=== PATIENT | male | born 1960 | race African-American/Black ===

== ENCOUNTER 2020-06-13 09:55 | Outpatient (CLI) | payer MEDICARE ==
--- NOTE | 2020-06-13 11:41 | ULT ---
US Hepatic Doppler History: Abnormal liver function tests Comparison: None. Findings: Real-time grayscale, color and spectral analysis of the liver was performed. Diffuse increased hepatic echotexture. No abnormal mass. Visualized portion aorta IVC and pancreas unremarkable. Normal directional flow of the portal vein and hepatic veins. Liver is enlarged measuring 20 cm in length. Gallbladder wall thickness is normal. Common bile duct is normal. No pericholecystic fluid. Spleen is enlarged measuring 13.4 cm in length. Impression: 1. Hepatosplenomegaly and diffuse hepatic steatosis. 2. Normal directional flow of the hepatic and portal veins.
== END 2020-06-13 09:56 | disposition home or self-care (01) ==
LOC: BICULT 09:55
PROVIDERS: ATTEND Internal Medicine Gastroenterology
DX: R94.5 Abnormal results of liver function studies (principal); D64.9 Anemia, unspecified; R16.2 Hepatomegaly with splenomegaly, not elsewhere classified; K76.0 Fatty (change of) liver, not elsewhere classified
CPT/HCPCS: 76705

== ENCOUNTER 2021-01-02 10:26 | Inpatient (IN) | payer MEDICARE ==
[2021-01-02 11:08] LABS: Hemoglobin 5.5 g/dL (14.0-18.0); Mean Corpuscular HGB CONC 28.3 g/dL (32.0-36.0); Mean Corpuscular Volume 63.5 fL (78.0-98.0); RBC Distribution Width 20.4 % (11.5-14.5); Red Blood Cell (RBC) Count 3.05 mill/uL (4.70-6.10)
[2021-01-02 11:36] LABS: #Eosinphils 0.2 thou/uL (0.0-0.7); #Lymphocytes 2.1 thou/uL (1.20-3.40); #Monocytes 0.8 thou/uL (0.11-0.59); #Neutrophils 3.8 thou/uL (1.40-6.50); %Basophils 0.7 % (0.0-1.0); %Eosinophils 3.3 % (0.0-10.0); %Lymphocytes 30.5 % (21.0-51.0); %Neutrophils 54.5 % (42.0-75.0); Anisocytosis MODERATE=16-30 cells (100X) (0-5/hpf); Band 1 % (5-11); Eosinophils 2 % (0-10); Hypochromia MODERATE=16-30 cells (100X) (0-5/hpf); Lymphocytes 26 % (21-51); MDiff Complete? YES; Mean Platelet Volume 6.9 fL (7.4-10.4); Monocytes 12 % (0-10); Neutrophil 59 % (42-75); Nucleated RBC 1 % (0); Platelet Count 261 thou/uL (130-400); Platelet Morphology Comment Appears Adequate; Polychromasia SLIGHT = 2-3 cells (100X) (0-2/hpf); Reflex for Review?? YES; Tear Drops SLIGHT = 2-5 cells (100X) (0-1/hpf)
[2021-01-02 11:43] LABS: INR-International Normal Ratio 1.1; PTT 35.7 sec (22.9-36.1); Prothrombin Time 14.5 sec (12.0-14.7)
[2021-01-02 12:09] LABS: ALT (SGPT) 31 U/L (8-55); AST (SGOT) 36 U/L (5-34); Albumin 3.8 g/dL (3.5-5.0); Alkaline Phosphatase 135 U/L (40-110); Anion Gap 14 mmol/L (10-20); BUN (Urea Nitrogen) 25 mg/dL (8.4-25.7); Bilirubin, Total 0.3 mg/dL (0.2-1.2); Calc. Creatinine Clearance 0 mL/min (70-130); Calcium 9.5 mg/dL (7.8-10.44); Carbon Dioxide 22 mmol/L (22-29); Chloride 106 mmol/L (98-107); Globulin 4.5 g/dL (2.4-3.5); Glucose 126 mg/dL (70-105); Potassium 4.9 mmol/L (3.5-5.1); Protein, Total 8.3 g/dL (6.0-8.3); Sodium 137 mmol/L (136-145)
[2021-01-02 13:54] LABS: Iron 14 ug/dL (65-175); Iron Binding Capacity, Total 498 mcg/dL (261-462)
[2021-01-02] MEDS ORDERED: Ondansetron ODT 4 MG TAB PO PRN (14:27)
[2021-01-02] MEDS ORDERED: Ondansetron PF 4 MG/2 ML Vial IVP PRN (14:27)
[2021-01-02] MEDS ORDERED: Dextrose 5% in Water 1,000 ML IV PRN (14:27)
[2021-01-02] MEDS ORDERED: HumaLOG 300 UNITS/3 ML VIAL SC PRN (14:27)
[2021-01-02] MEDS ORDERED: Acetaminophen 325 MG TAB PO PRN (14:27)
[2021-01-02] MEDS ORDERED: Dextrose 50% Abboject 50 ML SYRINGE SLOW IVP PRN (14:27)
[2021-01-02 14:58] LABS: Reticulocyte Count 2.8 % (0.5-1.5)
[2021-01-02 15:47] VITALS: BMI 38.3
[2021-01-02] MEDS: Lactated Ringer's 1,000 ML IV SCH (17:24)
[2021-01-02] MEDS ORDERED: GoLYTELY 4,000 ml Bottle PO SCH (20:00)
[2021-01-02] MEDS: Pantoprazole 40 MG VIAL IVP SCH (20:08)
[2021-01-02 20:45] LABS: SARS-CoV-2 PCR NAA for Saliva Not Detected (NotDetected)
[2021-01-03] MEDS: Lactated Ringer's 1,000 ML IV SCH ×3 (00:28→13:30)
[2021-01-03 05:08] LABS: Hemoglobin 6.6 g/dL (14.0-18.0)
[2021-01-03 05:27] LABS: Anion Gap 12 mmol/L (10-20); BUN (Urea Nitrogen) 22 mg/dL (8.4-25.7); Calc. Creatinine Clearance 59 mL/min (70-130); Calcium 9.3 mg/dL (7.8-10.44); Carbon Dioxide 23 mmol/L (22-29); Chloride 107 mmol/L (98-107); Glucose 124 mg/dL (70-105); Potassium 4.1 mmol/L (3.5-5.1); Sodium 138 mmol/L (136-145)
[2021-01-03] MEDS ORDERED: GoLYTELY 4,000 ml Bottle PO SCH (06:00)
[2021-01-03] MEDS: Pantoprazole 40 MG VIAL IVP SCH (08:31)
[2021-01-03 10:12] LABS: Hemoglobin 8.6 g/dL (14.0-18.0)
[2021-01-03 16:43] VITALS: BP 172/94; TEMP 98
[2021-01-06 15:22] LABS: Hematocrit 21.1 % (37.5-51.0); RBC Folate Test Component 1929 ng/mL (>498)
== END 2021-01-03 19:08 | disposition home or self-care (01) | DRG 812 ==
LOC: ERS 10:26 → T4-B 14:05
PROVIDERS: ADMIT Student in an Organized Health Care Education/Training Program; ATTEND Student in an Organized Health Care Education/Training Program
PROC: 30233N1 Transfusion of Nonautologous Red Blood Cells into Peripheral Vein, Percutaneous Approach (ICD-10-PCS; principal; 2021-01-02)
DX: D50.9 Iron deficiency anemia, unspecified (principal); Z20.822 Contact with and (suspected) exposure to COVID-19; M10.9 Gout, unspecified; F17.220 Nicotine dependence, chewing tobacco, uncomplicated; I12.9 Hypertensive chronic kidney disease with stage 1 through stage 4 chronic kidney disease, or unspecified chronic kidney disease; E11.22 Type 2 diabetes mellitus with diabetic chronic kidney disease; K76.0 Fatty (change of) liver, not elsewhere classified; E78.5 Hyperlipidemia, unspecified; D63.1 Anemia in chronic kidney disease; N18.32 Chronic kidney disease, stage 3b; Z83.2 Family history of diseases of the blood and blood-forming organs and certain disorders involving the immune mechanism
CPT/HCPCS: 36415; 36416; 36430; 80048; 80053; 82607; 82728; 82747; 83540; 83550; 85014; 85018; 85025; 85046; 85060; 85610; 85660; 85730; 86850; 86900; 86901; 87635; 99284; C9113; P9016; U0003; U0005

== ENCOUNTER 2021-02-03 10:14 | Emergency (ER) | payer MEDICARE ==
[2021-02-03 10:54] LABS: Hemoglobin 6.3 g/dL (14.0-18.0); Mean Corpuscular HGB CONC 32.3 g/dL (32.0-36.0); Mean Corpuscular Hemoglobin 22.5 pg (27.0-31.0); Mean Corpuscular Volume 69.6 fL (78.0-98.0); Mean Platelet Volume 5.4 fL (7.4-10.4); Platelet Count 238 thou/uL (130-400); RBC Distribution Width 20.9 % (11.5-14.5); Red Blood Cell (RBC) Count 2.78 mill/uL (4.70-6.10)
[2021-02-03 11:12] LABS: ALT (SGPT) 41 U/L (8-55); AST (SGOT) 43 U/L (5-34); Alkaline Phosphatase 142 U/L (40-110); Anion Gap 14 mmol/L (10-20); BUN (Urea Nitrogen) 28 mg/dL (8.4-25.7); Bilirubin, Total 0.3 mg/dL (0.2-1.2); Calc. Creatinine Clearance 0 mL/min (70-130); Calcium 9.1 mg/dL (7.8-10.44); Carbon Dioxide 22 mmol/L (22-29); Chloride 107 mmol/L (98-107); Globulin 4.3 g/dL (2.4-3.5); Glucose 163 mg/dL (70-105); Potassium 4.6 mmol/L (3.5-5.1); Protein, Total 8.3 g/dL (6.0-8.3); Sodium 138 mmol/L (136-145)
[2021-02-03 11:20] LABS: #Basophils 0.1 thou/uL (0.0-0.2); #Eosinphils 0.2 thou/uL (0.0-0.7); #Lymphocytes 1.7 thou/uL (1.20-3.40); #Monocytes 0.6 thou/uL (0.11-0.59); #Neutrophils 4.3 thou/uL (1.40-6.50); %Eosinophils 3.4 % (0.0-10.0); %Monocytes 8.9 % (0.0-10.0); %Neutrophils 61.6 % (42.0-75.0); Anisocytosis MODERATE=16-30 cells (100X) (0-5/hpf); Hypochromia MODERATE=16-30 cells (100X) (0-5/hpf); MDiff Complete? YES; Microcytosis MODERATE=15-30 cells (100X) (0-5/hpf); Platelet Morphology Comment Appears Adequate; Poikilocytosis SLIGHT = 6-15 cells (100X) (0-5/hpf); Polychromasia SLIGHT = 2-3 cells (100X) (0-2/hpf); Tear Drops SLIGHT = 2-5 cells (100X) (0-1/hpf)
== END 2021-02-03 14:23 | disposition home or self-care (01) ==
LOC: ERS 10:14
DX: K92.2 Gastrointestinal hemorrhage, unspecified (principal); I12.9 Hypertensive chronic kidney disease with stage 1 through stage 4 chronic kidney disease, or unspecified chronic kidney disease; E11.22 Type 2 diabetes mellitus with diabetic chronic kidney disease; N18.9 Chronic kidney disease, unspecified; D63.1 Anemia in chronic kidney disease; M10.9 Gout, unspecified; F17.220 Nicotine dependence, chewing tobacco, uncomplicated; E78.5 Hyperlipidemia, unspecified
CPT/HCPCS: 36430; 80053; 85025; 86850; 86900; 86901; 86920; 99284; P9016; 36415

== ENCOUNTER 2021-10-19 13:55 | Outpatient (CLI) | payer MEDICARE | END 2021-10-19 13:56 | disposition home or self-care (01) | LOC: BICULT 13:55 | PROVIDERS: ATTEND Internal Medicine Nephrology | DX: I12.9 Hypertensive chronic kidney disease with stage 1 through stage 4 chronic kidney disease, or unspecified chronic kidney disease (principal); N18.4 Chronic kidney disease, stage 4 (severe) | CPT/HCPCS: 36415; 76770; 80048; 81003; 82040; 82570; 83735; 83970; 84100; 84156; 86038; 86225; 86235; 93975 ==

== ENCOUNTER 2022-02-15 11:05 | Outpatient (CLI) | payer MEDICARE | END 2022-02-15 11:06 | disposition home or self-care (01) | LOC: LABBT 11:05 | PROVIDERS: ATTEND Internal Medicine Nephrology | DX: Z20.822 Contact with and (suspected) exposure to COVID-19 (principal) | CPT/HCPCS: U0003; U0005 ==

== ENCOUNTER → 2022-02-19 | Day surgery (SDC) | payer MEDICARE ==
[2022-02-18 10:10] VITALS: BMI 36.8
[2022-02-19 08:57] LABS: INR-International Normal Ratio 1.1; Prothrombin Time 13.8 sec (12.0-14.7)
[2022-02-19 08:58] LABS: PTT 34.8 sec (22.9-36.1)
[2022-02-19 09:12] VITALS: BP 131/75; TEMP 98
== END | disposition home or self-care (01) ==
LOC: CT 08:29
PROVIDERS: ATTEND Internal Medicine Nephrology
PROC: 0TB03ZX Excision of Right Kidney, Percutaneous Approach, Diagnostic (ICD-10-PCS; principal; 2022-02-19)
DX: I12.9 Hypertensive chronic kidney disease with stage 1 through stage 4 chronic kidney disease, or unspecified chronic kidney disease (principal); E11.22 Type 2 diabetes mellitus with diabetic chronic kidney disease; N18.4 Chronic kidney disease, stage 4 (severe); D63.1 Anemia in chronic kidney disease; E11.21 Type 2 diabetes mellitus with diabetic nephropathy; N25.81 Secondary hyperparathyroidism of renal origin; R16.2 Hepatomegaly with splenomegaly, not elsewhere classified; E87.5 Hyperkalemia; M10.9 Gout, unspecified; F17.290 Nicotine dependence, other tobacco product, uncomplicated; Z79.890 Hormone replacement therapy; Z79.899 Other long term (current) drug therapy
CPT/HCPCS: 36415; 50200; 77012; 85610; 85730; 88329

== ENCOUNTER 2022-07-21 08:43 | Day surgery (SDC) | payer MEDICARE ==
[2022-07-21] MEDS ORDERED: Acetaminophen 500 MG TAB ONE (10:31)
[2022-07-21] MEDS ORDERED: diphenhydrAMINE 25 MG CAP ONE (10:31)
[2022-07-21 16:02] VITALS: BP 152/83; TEMP 97.7
== END 2022-07-21 16:02 | disposition home or self-care (01) ==
LOC: ONC/OP 08:43
PROVIDERS: ATTEND Internal Medicine Hematology & Oncology
PROC: 30233N1 Transfusion of Nonautologous Red Blood Cells into Peripheral Vein, Percutaneous Approach (ICD-10-PCS; principal; 2022-07-21)
DX: D64.9 Anemia, unspecified (principal); D69.6 Thrombocytopenia, unspecified
CPT/HCPCS: 36430; 86850; 86900; 86901; P9016

== ENCOUNTER 2022-09-24 12:45 | Inpatient (IN) | payer MEDICARE ==
[2022-09-24 13:18] LABS: #Basophils 0.1 thou/uL (0.0-0.2); #Eosinphils 0.4 thou/uL (0.0-0.7); #Lymphocytes 1.1 thou/uL (1.20-3.40); #Monocytes 0.5 thou/uL (0.11-0.59); #Neutrophils 4.7 thou/uL (1.40-6.50); %Basophils 0.8 % (0.0-1.0); %Eosinophils 6.1 % (0.0-10.0); %Lymphocytes 16.5 % (21.0-51.0); %Monocytes 7.3 % (0.0-10.0); %Neutrophils 69.3 % (42.0-75.0); Mean Corpuscular HGB CONC 32.6 g/dL (32.0-36.0); Mean Corpuscular Hemoglobin 29.1 pg (27.0-31.0); Mean Corpuscular Volume 89.3 fl (78.0-98.0); Mean Platelet Volume 8.1 fL (7.4-10.4); Platelet Count 218 10x3/uL (130-400); RBC Distribution Width 14.1 % (11.5-14.5); Red Blood Cell (RBC) Count 3.07 mill/uL (4.70-6.10); White Blood Cell (WBC) Count 6.8 10x3/uL (4.8-10.8)
[2022-09-24 13:37] LABS: ALT (SGPT) 16 U/L (8-55); AST (SGOT) 18 U/L (5-34); Alkaline Phosphatase 132 U/L (40-110); Anion Gap 18 mmol/L (10-20); BUN (Urea Nitrogen) 60 mg/dL (8.4-25.7); Bilirubin, Total 0.4 mg/dL (0.2-1.2); Calc. Creatinine Clearance 0 mL/min (70-130); Calcium 8.8 mg/dL (7.8-10.44); Carbon Dioxide 19 mmol/L (22-29); Chloride 103 mmol/L (98-107); Estimated GFR 7; Globulin 4.6 g/dL (2.4-3.5); Glucose 156 mg/dL (70-105); Potassium 5.5 mmol/L (3.5-5.1); Protein, Total 8.6 g/dL (6.0-8.3); Sodium 134 mmol/L (136-145)
[2022-09-24] MEDS ORDERED: Calcium Gluc 4.6 MEQ/10 ML (100 MG/ML) ONE (14:38)
[2022-09-24 14:58] LABS: Bacteria/HPF 2+ HPF (None Seen); Bilirubin Negative (Negative); Blood, Urine 1+ (Negative); Clarity Clear (Clear); Glucose, Urine (Dipstick) 70 mg/dL (Negative); Ketone, Urine Negative (Negative); Leukocyte Negative Leu/uL (Negative); Nitrite Negative (Negative); Protein, Urine (Dipstick) 300 mg/dL (Neg-Trace); RBC/HPF 0-3 HPF (0-3); Specific Gravity, Urine 1.015 (1.002-1.036); Squamous Epithelial 0-3 HPF (0-3); Urobilinogen Normal mg/dL (Less than 2); pH, Urine 6.5 (5.0-9.0)
[2022-09-24] MEDS ORDERED: HumaLOG 300 UNITS/3 ML VIAL SC PRN (15:56)
[2022-09-24] MEDS ORDERED: Dextrose 50% Abboject 50 ML SYRINGE SLOW IVP PRN (15:56)
[2022-09-24] MEDS ORDERED: Acetaminophen 325 MG TAB PO PRN ×2 (15:56→16:46)
[2022-09-24] MEDS ORDERED: Dextrose 5% in Water 1,000 ML IV PRN (15:56)
[2022-09-24] MEDS ORDERED: LOKELMA 5 GM PACKET PO SCH (16:00)
[2022-09-24] MEDS ORDERED: HYDROcodone/Acetaminophen 10/325 mg Tablet PO PRN (16:03)
[2022-09-24] MEDS ORDERED: Sodium Bicarbonate Tab 325 MG TAB PO SCH (16:15)
[2022-09-24 16:47] VITALS: BMI 38.7
[2022-09-24] MEDS: Carvedilol 6.25 MG TAB PO SCH (20:29)
[2022-09-24] MEDS ORDERED: Sodium Bicarbonate 150 MEQ in Dextrose 5% in Water 1,000 ML IV SCH (20:30)
[2022-09-24] MEDS: Heparin 5,000 UNITS/ML VIAL SC SCH (20:31)
[2022-09-24 22:34] LABS: Anion Gap 16 mmol/L (10-20); BUN (Urea Nitrogen) 65 mg/dL (8.4-25.7); Calc. Creatinine Clearance 16 mL/min (70-130); Calcium 8.8 mg/dL (7.8-10.44); Carbon Dioxide 19 mmol/L (22-29); Chloride 106 mmol/L (98-107); Estimated GFR 8; Glucose 104 mg/dL (70-105); Potassium 5.1 mmol/L (3.5-5.1); Sodium 136 mmol/L (136-145)
[2022-09-25 04:35] LABS: #Eosinphils 0.4 thou/uL (0.0-0.7); #Lymphocytes 1.6 thou/uL (1.20-3.40); #Monocytes 0.5 thou/uL (0.11-0.59); #Neutrophils 4.4 thou/uL (1.40-6.50); %Basophils 0.5 % (0.0-1.0); %Eosinophils 6.2 % (0.0-10.0); %Lymphocytes 22.5 % (21.0-51.0); %Monocytes 7.5 % (0.0-10.0); %Neutrophils 63.3 % (42.0-75.0); Hemoglobin 7.9 g/dL (14.0-18.0); Mean Corpuscular HGB CONC 32.7 g/dL (32.0-36.0); Mean Corpuscular Hemoglobin 28.9 pg (27.0-31.0); Mean Corpuscular Volume 88.5 fl (78.0-98.0); Mean Platelet Volume 8.3 fL (7.4-10.4); Platelet Count 219 10x3/uL (130-400); RBC Distribution Width 14.2 % (11.5-14.5); Red Blood Cell (RBC) Count 2.71 mill/uL (4.70-6.10)
[2022-09-25 04:54] LABS: Albumin 3.7 g/dL (3.5-5.0); Anion Gap 17 mmol/L (10-20); BUN (Urea Nitrogen) 62 mg/dL (8.4-25.7); BUN/Creatinine Ratio 7.78; Calc. Creatinine Clearance 15 mL/min (70-130); Calcium 8.7 mg/dL (7.8-10.44); Carbon Dioxide 20 mmol/L (22-29); Chloride 104 mmol/L (98-107); Estimated GFR 7; Glucose 113 mg/dL (70-105); Phosphorus 5.9 mg/dL (2.3-4.7); Sodium 136 mmol/L (136-145)
[2022-09-25] MEDS: Febuxostat 40 MG TAB PO SCH (05:26)
[2022-09-25] MEDS: Folic Acid 1 MG TAB PO SCH (05:26)
[2022-09-25] MEDS: Levothyroxine 150 MCG TAB PO SCH (05:26)
[2022-09-25] MEDS: Carvedilol 6.25 MG TAB PO SCH ×2 (05:26→20:01)
[2022-09-25] MEDS: Doxazosin Mesylate 4 MG TAB PO SCH (05:26)
[2022-09-25] MEDS: Amlodipine 10 MG TAB PO SCH (05:26)
[2022-09-25] MEDS: Heparin 5,000 UNITS/ML VIAL SC SCH ×3 (08:10→20:04)
[2022-09-25] MEDS: Ferrous Sulfate 325 MG TAB PO SCH (08:10)
[2022-09-25] MEDS: Sodium Bicarbonate Tab 325 MG TAB PO SCH (08:11)
[2022-09-25] MEDS ORDERED: CEFAZOLIN 2 GM VIAL ONE (11:40)
[2022-09-25] MEDS ORDERED: Sodium Chloride 0.9% 100 ML ONE (11:40)
[2022-09-25] MEDS ORDERED: Lidocaine 1% PF 5 ML VIAL ONE (11:56)
[2022-09-25] MEDS ORDERED: Bupivacaine HCl 0.5%/Epinephrine 1:200,000/PF 30 ml Vial ONE (11:56)
[2022-09-25] MEDS ORDERED: Heparin 10,000 UNITS/ 10 ML VIAL ONE ×2 (11:56→12:36)
[2022-09-25] MEDS ORDERED: fentaNYL PF 100 MCG/2 ML SYRINGE ONE (12:08)
[2022-09-25] MEDS ORDERED: ePHEDrine 50 MG/ML VIAL ONE (12:38)
[2022-09-25] MEDS ORDERED: PROPOFOL 200 MG/20 ML VIAL ONE (12:38)
[2022-09-25] MEDS ORDERED: Ondansetron PF 4 MG/2 ML Vial ONE (12:38)
[2022-09-25] MEDS ORDERED: Glycopyrrolate 0.2 MG/ML 5 ML SYRINGE ONE (12:38)
[2022-09-25] MEDS ORDERED: traMADol HCl 50 MG TAB PO PRN (13:35)
[2022-09-25 15:33] LABS: HBSAB Concentration Less than 8.00 mIU/mL; HBSAg Index 0.21 S/CO (0-0.99); Hep B Core Total Ab Non-Reactive (NonReactive); Hep B Core Total Index 0.13 S/CO (0-0.79); Hep B Surf AB Non-Reactive (NonReactive); Hep B Surf Ag Non-Reactive S/CO (NonReactive)
[2022-09-25 15:38] LABS: Hep C IgG Ab Reflex HepC Qnt (NonReactive); Hep C Index 10.99 S/CO (0-0.79)
[2022-09-25] MEDS ORDERED: CEFAZOLIN 2 GM in Sodium Chloride 0.9% 100 ML IVPB SCH (16:30)
[2022-09-26] MEDS: HYDROcodone/Acetaminophen 10/325 mg Tablet PO PRN ×2 (00:36→12:59)
[2022-09-26 05:00] LABS: #Basophils 0.1 thou/uL (0.0-0.2); #Eosinphils 0.4 thou/uL (0.0-0.7); #Lymphocytes 1.3 thou/uL (1.20-3.40); #Monocytes 0.6 thou/uL (0.11-0.59); #Neutrophils 6.3 thou/uL (1.40-6.50); %Basophils 0.6 % (0.0-1.0); %Eosinophils 4.2 % (0.0-10.0); %Lymphocytes 14.7 % (21.0-51.0); %Neutrophils 73.4 % (42.0-75.0); Hemoglobin 8.7 g/dL (14.0-18.0); Mean Corpuscular HGB CONC 32.5 g/dL (32.0-36.0); Mean Corpuscular Hemoglobin 28.8 pg (27.0-31.0); Mean Corpuscular Volume 88.6 fl (78.0-98.0); Mean Platelet Volume 7.8 fL (7.4-10.4); Platelet Count 213 10x3/uL (130-400); RBC Distribution Width 13.8 % (11.5-14.5); Red Blood Cell (RBC) Count 3.02 mill/uL (4.70-6.10); White Blood Cell (WBC) Count 8.6 10x3/uL (4.8-10.8)
[2022-09-26] MEDS: Levothyroxine 150 MCG TAB PO SCH (05:14)
[2022-09-26 05:32] LABS: Anion Gap 16 mmol/L (10-20); BUN (Urea Nitrogen) 47 mg/dL (8.4-25.7); Calc. Creatinine Clearance 19 mL/min (70-130); Calcium 8.2 mg/dL (7.8-10.44); Carbon Dioxide 24 mmol/L (22-29); Chloride 99 mmol/L (98-107); Estimated GFR 9; Glucose 126 mg/dL (70-105); Potassium 4.5 mmol/L (3.5-5.1); Sodium 134 mmol/L (136-145)
[2022-09-26 07:44] LABS: Phosphorus 1.6 mg/dL (2.3-4.7)
[2022-09-26 07:56] LABS: Magnesium 1.8 mg/dL (1.6-2.6)
[2022-09-26] MEDS: Heparin 5,000 UNITS/ML VIAL SC SCH ×3 (09:24→22:13)
[2022-09-26] MEDS ORDERED: Heparin 10,000 UNITS/ 10 ML VIAL ONE (12:37)
[2022-09-26] MEDS: Ferrous Sulfate 325 MG TAB PO SCH (12:42)
[2022-09-26] MEDS: Amlodipine 10 MG TAB PO SCH (12:43)
[2022-09-26] MEDS: Doxazosin Mesylate 4 MG TAB PO SCH (12:47)
[2022-09-26] MEDS: Carvedilol 6.25 MG TAB PO SCH ×2 (12:47→22:21)
[2022-09-26] MEDS: Febuxostat 40 MG TAB PO SCH (12:48)
[2022-09-26] MEDS: Fish Oil 1,000 MG CAP PO SCH (12:48)
[2022-09-26] MEDS: Sodium Bicarbonate Tab 325 MG TAB PO SCH (12:49)
[2022-09-26] MEDS: Folic Acid 1 MG TAB PO SCH (12:49)
[2022-09-27 05:12] LABS: #Eosinphils 0.4 thou/uL (0.0-0.7); #Lymphocytes 1.6 thou/uL (1.20-3.40); #Monocytes 0.6 thou/uL (0.11-0.59); #Neutrophils 3.6 thou/uL (1.40-6.50); %Basophils 0.6 % (0.0-1.0); %Eosinophils 6.6 % (0.0-10.0); %Lymphocytes 25.7 % (21.0-51.0); %Monocytes 9.5 % (0.0-10.0); %Neutrophils 57.6 % (42.0-75.0); Hemoglobin 8.8 g/dL (14.0-18.0); Mean Corpuscular HGB CONC 32.5 g/dL (32.0-36.0); Mean Corpuscular Hemoglobin 28.8 pg (27.0-31.0); Mean Corpuscular Volume 88.6 fl (78.0-98.0); Platelet Count 194 10x3/uL (130-400); RBC Distribution Width 13.6 % (11.5-14.5); Red Blood Cell (RBC) Count 3.04 mill/uL (4.70-6.10); White Blood Cell (WBC) Count 6.3 10x3/uL (4.8-10.8)
[2022-09-27] MEDS: Carvedilol 6.25 MG TAB PO SCH ×2 (05:42→21:05)
[2022-09-27] MEDS: Levothyroxine 150 MCG TAB PO SCH (05:42)
[2022-09-27] MEDS: HYDROcodone/Acetaminophen 10/325 mg Tablet PO PRN ×2 (05:43→21:05)
[2022-09-27] MEDS ORDERED: CEFAZOLIN 2 GM in Sodium Chloride 0.9% 100 ML IVPB SCH (06:00)
[2022-09-27 06:04] LABS: Anion Gap 16 mmol/L (10-20); BUN (Urea Nitrogen) 40 mg/dL (8.4-25.7); Calc. Creatinine Clearance 20 mL/min (70-130); Calcium 8.3 mg/dL (7.8-10.44); Carbon Dioxide 24 mmol/L (22-29); Chloride 101 mmol/L (98-107); Estimated GFR 10; Glucose 105 mg/dL (70-105); Magnesium 2.2 mg/dL (1.6-2.6); Potassium 4.2 mmol/L (3.5-5.1); Sodium 137 mmol/L (136-145)
[2022-09-27] MEDS: Febuxostat 40 MG TAB PO SCH (08:16)
[2022-09-27] MEDS: Sodium Bicarbonate Tab 325 MG TAB PO SCH (08:16)
[2022-09-27] MEDS: Folic Acid 1 MG TAB PO SCH (08:16)
[2022-09-27] MEDS: Ferrous Sulfate 325 MG TAB PO SCH (08:16)
[2022-09-27] MEDS: Amlodipine 10 MG TAB PO SCH (08:16)
[2022-09-27] MEDS: Doxazosin Mesylate 4 MG TAB PO SCH (08:16)
[2022-09-27] MEDS: Fish Oil 1,000 MG CAP PO SCH (08:16)
[2022-09-27] MEDS: Heparin 5,000 UNITS/ML VIAL SC SCH ×3 (08:17→21:05)
[2022-09-27] MEDS ORDERED: Tuberculin PPD 0.1 ML VIAL I-DERMAL SCH (11:00)
[2022-09-27] MEDS ORDERED: Midazolam HCl 2 mg/2 ml Vial ONE (11:17)
[2022-09-27] MEDS ORDERED: Heparin 5,000 UNITS/ML VIAL ONE (11:49)
[2022-09-27] MEDS ORDERED: Protamine Sulfate 50 MG/5 ML VIAL ONE (11:49)
[2022-09-27] MEDS ORDERED: Bupivacaine PF 0.5% 30 ML VIAL ONE (11:49)
[2022-09-27] MEDS ORDERED: fentaNYL PF 100 MCG/2 ML SYRINGE ONE (11:59)
[2022-09-27] MEDS ORDERED: Epoetin (ESRD) 10,000 UNITS/ML VIAL IVP SCH (12:00)
[2022-09-27] MEDS ORDERED: Sodium Chloride 0.9% 100 ML ONE (12:02)
[2022-09-27] MEDS ORDERED: CEFAZOLIN 2 GM VIAL ONE (12:02)
[2022-09-27] MEDS ORDERED: Ondansetron PF 4 MG/2 ML Vial ONE (12:18)
[2022-09-27] MEDS ORDERED: Ropivacaine 0.5% HCl/PF (150 MG/30 ML VIAL) ONE (12:18)
[2022-09-27] MEDS: EPOETIN ALFA-EPBX (ESRD) 10,000 UNIT/ML VIAL IVP SCH (16:15)
[2022-09-27] MEDS: Sevelamer Carbonate 800 MG TAB PO SCH (16:53)
[2022-09-28 04:34] LABS: #Eosinphils 0.3 thou/uL (0.0-0.7); #Lymphocytes 1.4 thou/uL (1.20-3.40); #Monocytes 0.7 thou/uL (0.11-0.59); #Neutrophils 4.3 thou/uL (1.40-6.50); %Basophils 0.3 % (0.0-1.0); %Eosinophils 4.3 % (0.0-10.0); %Lymphocytes 21.4 % (21.0-51.0); %Monocytes 10.2 % (0.0-10.0); %Neutrophils 63.8 % (42.0-75.0); Hemoglobin 8.9 g/dL (14.0-18.0); Mean Corpuscular HGB CONC 32.7 g/dL (32.0-36.0); Mean Corpuscular Hemoglobin 28.9 pg (27.0-31.0); Mean Corpuscular Volume 88.4 fl (78.0-98.0); Mean Platelet Volume 8.2 fL (7.4-10.4); Platelet Count 183 10x3/uL (130-400); RBC Distribution Width 13.6 % (11.5-14.5); Red Blood Cell (RBC) Count 3.08 mill/uL (4.70-6.10); White Blood Cell (WBC) Count 6.8 10x3/uL (4.8-10.8)
[2022-09-28 04:41] LABS: Anion Gap 14 mmol/L (10-20); BUN (Urea Nitrogen) 27 mg/dL (8.4-25.7); Calc. Creatinine Clearance 24 mL/min (70-130); Calcium 8.5 mg/dL (7.8-10.44); Carbon Dioxide 26 mmol/L (22-29); Chloride 98 mmol/L (98-107); Estimated GFR 13; Glucose 150 mg/dL (70-105); Sodium 134 mmol/L (136-145)
[2022-09-28 04:50] LABS: Phosphorus 5.4 mg/dL (2.3-4.7)
[2022-09-28] MEDS: Levothyroxine 150 MCG TAB PO SCH (05:03)
[2022-09-28] MEDS: Amlodipine 10 MG TAB PO SCH (09:07)
[2022-09-28] MEDS: Febuxostat 40 MG TAB PO SCH (09:07)
[2022-09-28] MEDS: Carvedilol 6.25 MG TAB PO SCH ×2 (09:07→20:49)
[2022-09-28] MEDS: Folic Acid 1 MG TAB PO SCH (09:07)
[2022-09-28] MEDS: Sevelamer Carbonate 800 MG TAB PO SCH ×3 (09:07→17:03)
[2022-09-28] MEDS: Doxazosin Mesylate 4 MG TAB PO SCH (09:08)
[2022-09-28] MEDS: Fish Oil 1,000 MG CAP PO SCH (09:08)
[2022-09-28] MEDS: Heparin 5,000 UNITS/ML VIAL SC SCH ×3 (09:08→20:49)
[2022-09-28] MEDS: HYDROcodone/Acetaminophen 10/325 mg Tablet PO PRN (11:23)
[2022-09-29 01:13] LABS: Hep C PCR-Quant HCV Not Detected IU/mL (.)
[2022-09-29 04:35] LABS: #Eosinphils 0.4 thou/uL (0.0-0.7); #Lymphocytes 1.7 thou/uL (1.20-3.40); #Monocytes 0.8 thou/uL (0.11-0.59); #Neutrophils 3.7 thou/uL (1.40-6.50); %Basophils 0.1 % (0.0-1.0); %Eosinophils 5.8 % (0.0-10.0); %Lymphocytes 26.2 % (21.0-51.0); %Monocytes 11.6 % (0.0-10.0); %Neutrophils 56.3 % (42.0-75.0); Hemoglobin 8.1 g/dL (14.0-18.0); Mean Corpuscular HGB CONC 31.6 g/dL (32.0-36.0); Mean Corpuscular Hemoglobin 27.7 pg (27.0-31.0); Mean Corpuscular Volume 87.9 fl (78.0-98.0); Mean Platelet Volume 8.1 fL (7.4-10.4); Platelet Count 185 10x3/uL (130-400); RBC Distribution Width 13.5 % (11.5-14.5); Red Blood Cell (RBC) Count 2.92 mill/uL (4.70-6.10); White Blood Cell (WBC) Count 6.6 10x3/uL (4.8-10.8)
[2022-09-29 04:55] LABS: Anion Gap 15 mmol/L (10-20); BUN (Urea Nitrogen) 47 mg/dL (8.4-25.7); Calc. Creatinine Clearance 17 mL/min (70-130); Calcium 8.5 mg/dL (7.8-10.44); Carbon Dioxide 25 mmol/L (22-29); Chloride 96 mmol/L (98-107); Estimated GFR 8; Glucose 129 mg/dL (70-105); Magnesium 2.2 mg/dL (1.6-2.6); Potassium 4.1 mmol/L (3.5-5.1); Sodium 132 mmol/L (136-145)
[2022-09-29 05:03] LABS: Phosphorus 6.8 mg/dL (2.3-4.7)
[2022-09-29] MEDS: Levothyroxine 150 MCG TAB PO SCH (05:14)
[2022-09-29] MEDS ORDERED: Heparin 10,000 UNITS/ 10 ML VIAL ONE (08:12)
[2022-09-29] MEDS: Heparin 5,000 UNITS/ML VIAL SC SCH ×3 (09:53→22:20)
[2022-09-29] MEDS: Sevelamer Carbonate 800 MG TAB PO SCH ×3 (09:53→16:52)
[2022-09-29] MEDS: Carvedilol 6.25 MG TAB PO SCH ×2 (09:53→21:23)
[2022-09-29] MEDS ORDERED: traMADol HCl 50 MG TAB PO PRN (10:33)
[2022-09-29] MEDS: Doxazosin Mesylate 4 MG TAB PO SCH (14:04)
[2022-09-29] MEDS: Amlodipine 10 MG TAB PO SCH (14:04)
[2022-09-29] MEDS: Fish Oil 1,000 MG CAP PO SCH (14:04)
[2022-09-29] MEDS: EPOETIN ALFA-EPBX (ESRD) 10,000 UNIT/ML VIAL IVP SCH (14:04)
[2022-09-29] MEDS: Folic Acid 1 MG TAB PO SCH (14:05)
[2022-09-29] MEDS: Febuxostat 40 MG TAB PO SCH (14:07)
[2022-09-29] MEDS ORDERED: Diclofenac 1% 100 GM GEL TP PRN (15:55)
[2022-09-30] MEDS: Levothyroxine 150 MCG TAB PO SCH (06:09)
[2022-09-30 06:41] LABS: #Eosinphils 0.4 thou/uL (0.0-0.7); #Lymphocytes 1.7 thou/uL (1.20-3.40); #Neutrophils 4.8 thou/uL (1.40-6.50); %Basophils 0.1 % (0.0-1.0); %Eosinophils 4.7 % (0.0-10.0); %Lymphocytes 21.5 % (21.0-51.0); %Monocytes 12.7 % (0.0-10.0); Mean Corpuscular HGB CONC 33.1 g/dL (32.0-36.0); Mean Corpuscular Hemoglobin 28.9 pg (27.0-31.0); Mean Corpuscular Volume 87.3 fl (78.0-98.0); Mean Platelet Volume 7.8 fL (7.4-10.4); Platelet Count 203 10x3/uL (130-400); RBC Distribution Width 13.4 % (11.5-14.5); Red Blood Cell (RBC) Count 2.77 mill/uL (4.70-6.10); White Blood Cell (WBC) Count 7.8 10x3/uL (4.8-10.8)
[2022-09-30 06:56] LABS: Phosphorus 6.5 mg/dL (2.3-4.7)
[2022-09-30 06:59] LABS: Anion Gap 18 mmol/L (10-20); BUN (Urea Nitrogen) 48 mg/dL (8.4-25.7); Calc. Creatinine Clearance 18 mL/min (70-130); Carbon Dioxide 25 mmol/L (22-29); Chloride 93 mmol/L (98-107); Estimated GFR 9; Glucose 110 mg/dL (70-105); Magnesium 2.2 mg/dL (1.6-2.6); Potassium 4.4 mmol/L (3.5-5.1); Sodium 132 mmol/L (136-145)
[2022-09-30] MEDS: Sevelamer Carbonate 800 MG TAB PO SCH ×2 (09:00→12:33)
[2022-09-30] MEDS: Amlodipine 10 MG TAB PO SCH (10:14)
[2022-09-30] MEDS: Fish Oil 1,000 MG CAP PO SCH (10:15)
[2022-09-30] MEDS: Doxazosin Mesylate 4 MG TAB PO SCH (10:15)
[2022-09-30] MEDS: Carvedilol 6.25 MG TAB PO SCH (10:15)
[2022-09-30] MEDS: Febuxostat 40 MG TAB PO SCH (10:16)
[2022-09-30] MEDS: Heparin 5,000 UNITS/ML VIAL SC SCH (10:16)
[2022-09-30] MEDS: Folic Acid 1 MG TAB PO SCH (10:16)
[2022-09-30] MEDS: HYDROcodone/Acetaminophen 10/325 mg Tablet PO PRN (10:18)
[2022-09-30 12:07] VITALS: BP 139/67; TEMP 98.7
== END 2022-09-30 14:05 | disposition home or self-care (01) | DRG 673 ==
LOC: ERS 12:45 → 2NO 14:42
PROVIDERS: ADMIT Student in an Organized Health Care Education/Training Program; ATTEND Family Medicine
PROC: 5A1D70Z Performance of Urinary Filtration, Intermittent, Less than 6 Hours Per Day (ICD-10-PCS; principal; 2022-09-25)
PROC: 30233N1 Transfusion of Nonautologous Red Blood Cells into Peripheral Vein, Percutaneous Approach (ICD-10-PCS; 2022-09-25)
PROC: 0JH60XZ Insertion of Tunneled Vascular Access Device into Chest Subcutaneous Tissue and Fascia, Open Approach (ICD-10-PCS; 2022-09-25)
PROC: 02HV33Z Insertion of Infusion Device into Superior Vena Cava, Percutaneous Approach (ICD-10-PCS; 2022-09-25)
PROC: B5181ZA Fluoroscopy of Superior Vena Cava using Low Osmolar Contrast, Guidance (ICD-10-PCS; 2022-09-25)
PROC: 02HV33Z Insertion of Infusion Device into Superior Vena Cava, Percutaneous Approach (ICD-10-PCS; 2022-09-25)
PROC: B548ZZA Ultrasonography of Superior Vena Cava, Guidance (ICD-10-PCS; 2022-09-25)
PROC: 031C0ZF Bypass Left Radial Artery to Lower Arm Vein, Open Approach (ICD-10-PCS; 2022-09-27)
DX: N17.9 Acute kidney failure, unspecified (principal); G93.41 Metabolic encephalopathy; E87.1 Hypo-osmolality and hyponatremia; E87.20 Acidosis, unspecified; N18.6 End stage renal disease; N04.1 Nephrotic syndrome with focal and segmental glomerular lesions; Z20.822 Contact with and (suspected) exposure to COVID-19; M10.9 Gout, unspecified; E03.9 Hypothyroidism, unspecified; E11.9 Type 2 diabetes mellitus without complications; I10 Essential (primary) hypertension; F17.220 Nicotine dependence, chewing tobacco, uncomplicated; E87.5 Hyperkalemia; M19.90 Unspecified osteoarthritis, unspecified site; D63.1 Anemia in chronic kidney disease; E66.01 Morbid (severe) obesity due to excess calories; E83.39 Other disorders of phosphorus metabolism; Z79.899 Other long term (current) drug therapy; Z79.890 Hormone replacement therapy; Z68.39 Body mass index [BMI] 39.0-39.9, adult
CPT/HCPCS: 36415; 36416; 36430; 71045; 80048; 80053; 80069; 81003; 81015; 83735; 84100; 84484; 85025; 86580; 86704; 86850; 86900; 86901; 87522; 90935; 93005; 93970; 96374; C1751; C1752; C1776; G0257; J0610; J1642; J1644; J2250; J2405; J2704; J2720; J2795; J3490; J7070; P9016; Q5105; S0020; U0003; U0005

== ENCOUNTER 2022-10-15 10:08 | Emergency (ER) | payer MEDICARE ==
[2022-10-15 10:52] LABS: #Eosinphils 0.3 thou/uL (0.0-0.7); #Monocytes 0.4 thou/uL (0.11-0.59); #Neutrophils 3.4 thou/uL (1.40-6.50); %Basophils 0.8 % (0.0-1.0); %Eosinophils 5.9 % (0.0-10.0); %Lymphocytes 18.9 % (21.0-51.0); %Monocytes 8.3 % (0.0-10.0); %Neutrophils 66.1 % (42.0-75.0); Hemoglobin 8.2 g/dL (14.0-18.0); Mean Corpuscular HGB CONC 31.9 g/dL (32.0-36.0); Mean Corpuscular Hemoglobin 28.7 pg (27.0-31.0); Mean Platelet Volume 7.9 fL (7.4-10.4); Platelet Count 282 10x3/uL (130-400); RBC Distribution Width 16.3 % (11.5-14.5); Red Blood Cell (RBC) Count 2.85 mill/uL (4.70-6.10); White Blood Cell (WBC) Count 5.1 10x3/uL (4.8-10.8)
[2022-10-15 11:13] LABS: ALT (SGPT) 22 U/L (8-55); AST (SGOT) 26 U/L (5-34); Alkaline Phosphatase 161 U/L (40-110); Anion Gap 17 mmol/L (10-20); BUN (Urea Nitrogen) 32 mg/dL (8.4-25.7); Bilirubin, Total 0.5 mg/dL (0.2-1.2); Calc. Creatinine Clearance 0 mL/min (70-130); Calcium 9.1 mg/dL (7.8-10.44); Carbon Dioxide 26 mmol/L (22-29); Chloride 101 mmol/L (98-107); Estimated GFR 10; Globulin 4.9 g/dL (2.4-3.5); Glucose 133 mg/dL (70-105); Potassium 3.7 mmol/L (3.5-5.1); Protein, Total 8.9 g/dL (6.0-8.3); Sodium 140 mmol/L (136-145)
== END 2022-10-15 12:18 | disposition home or self-care (01) ==
LOC: ERS 10:08
DX: D64.9 Anemia, unspecified (principal); E78.5 Hyperlipidemia, unspecified; I12.0 Hypertensive chronic kidney disease with stage 5 chronic kidney disease or end stage renal disease; N18.6 End stage renal disease; E11.9 Type 2 diabetes mellitus without complications; F17.220 Nicotine dependence, chewing tobacco, uncomplicated; Z99.2 Dependence on renal dialysis
CPT/HCPCS: 36415; 80053; 85025; 86850; 86900; 86901; 99284

== ENCOUNTER 2022-12-30 12:59 | Emergency (ER) | payer MEDICARE ==
[2022-12-30 13:48] LABS: #Eosinphils 0.4 thou/uL (0.0-0.7); #Lymphocytes 1.6 thou/uL (1.20-3.40); #Monocytes 0.5 thou/uL (0.11-0.59); %Basophils 0.5 % (0.0-1.0); %Eosinophils 5.7 % (0.0-10.0); %Lymphocytes 24.8 % (21.0-51.0); Hemoglobin 6.5 g/dL (14.0-18.0); Mean Corpuscular HGB CONC 33.4 g/dL (32.0-36.0); Mean Corpuscular Hemoglobin 30.2 pg (27.0-31.0); Mean Corpuscular Volume 90.3 fl (78.0-98.0); Mean Platelet Volume 8.1 fL (7.4-10.4); Platelet Count 187 10x3/uL (130-400); RBC Distribution Width 16.4 % (11.5-14.5); Red Blood Cell (RBC) Count 2.16 mill/uL (4.70-6.10); White Blood Cell (WBC) Count 6.4 10x3/uL (4.8-10.8)
[2022-12-30 14:05] LABS: ALT (SGPT) 17 U/L (8-55); AST (SGOT) 23 U/L (5-34); Albumin 3.5 g/dL (3.5-5.0); Alkaline Phosphatase 112 U/L (40-110); Anion Gap 14 mmol/L (10-20); BUN (Urea Nitrogen) 26 mg/dL (8.4-25.7); Bilirubin, Total 0.4 mg/dL (0.2-1.2); Calc. Creatinine Clearance 0 mL/min (70-130); Carbon Dioxide 28 mmol/L (22-29); Chloride 101 mmol/L (98-107); Estimated GFR 12; Globulin 4.1 g/dL (2.4-3.5); Glucose 93 mg/dL (70-105); Potassium 3.3 mmol/L (3.5-5.1); Protein, Total 7.6 g/dL (6.0-8.3); Sodium 140 mmol/L (136-145)
[2022-12-30 15:47] LABS: HBSAg Index 0.25 S/CO (0-0.99); Hep B Core Total Ab Non-Reactive (NonReactive); Hep B Core Total Index 0.12 S/CO (0-0.79); Hep B Surf Ag Non-Reactive S/CO (NonReactive)
[2022-12-30 15:49] LABS: HBSAB Concentration 18.12 mIU/mL; Hep C IgG Ab Reflex HepC Qnt S/CO (NonReactive); Hep C Index 16.13 S/CO (0-0.79)
[2022-12-30 16:01] LABS: Hep B Surf AB Reactive (NonReactive)
== END 2022-12-30 19:14 | disposition home or self-care (01) ==
LOC: ERS 12:59
DX: D64.9 Anemia, unspecified (principal); I10 Essential (primary) hypertension; E78.5 Hyperlipidemia, unspecified; E11.9 Type 2 diabetes mellitus without complications; F17.220 Nicotine dependence, chewing tobacco, uncomplicated
CPT/HCPCS: 36430; 80053; 85025; 86704; 86850; 86900; 86901; 86920; 99284; P9016; 36415; 90935; G0257

== ENCOUNTER 2023-03-30 18:37 | Emergency (ER) | payer MEDICARE ==
[2023-03-30 20:05] LABS: #Eosinphils 0.2 thou/uL (0.0-0.7); #Monocytes 0.4 thou/uL (0.11-0.59); #Neutrophils 3.2 thou/uL (1.40-6.50); %Basophils 0.4 % (0.0-1.0); %Eosinophils 3.9 % (0.0-10.0); %Lymphocytes 20.7 % (21.0-51.0); %Monocytes 8.1 % (0.0-10.0); %Neutrophils 66.3 % (42.0-75.0); Hemoglobin 6.2 g/dL (14.0-18.0); Mean Corpuscular HGB CONC 31.6 g/dL (32.0-36.0); Mean Corpuscular Hemoglobin 31.3 pg (27.0-31.0); Mean Platelet Volume 11.4 fL (7.4-10.4); Platelet Count 223 10x3/uL (130-400); RBC Distribution Width 16.9 % (11.5-14.5); Red Blood Cell (RBC) Count 1.98 mill/uL (4.70-6.10); White Blood Cell (WBC) Count 4.8 10x3/uL (4.8-10.8)
[2023-03-30 20:21] LABS: INR-International Normal Ratio 1.1; PTT 29.7 sec (22.9-36.1); Prothrombin Time 14.3 sec (12.0-14.7)
[2023-03-30 20:28] LABS: ALT (SGPT) 20 U/L (8-55); AST (SGOT) 36 U/L (5-34); Albumin 3.8 g/dL (3.5-5.0); Alkaline Phosphatase 80 U/L (40-110); Anion Gap 18 mmol/L (10-20); BUN (Urea Nitrogen) 35 mg/dL (8.4-25.7); Bilirubin, Total 0.3 mg/dL (0.2-1.2); Calc. Creatinine Clearance 0 mL/min (70-130); Calcium 8.9 mg/dL (7.8-10.44); Carbon Dioxide 27 mmol/L (22-29); Chloride 99 mmol/L (98-107); Estimated GFR 12; Globulin 4.2 g/dL (2.4-3.5); Glucose 156 mg/dL (70-105); Magnesium 1.8 mg/dL (1.6-2.6); Potassium 3.8 mmol/L (3.5-5.1); Sodium 140 mmol/L (136-145)
== END 2023-03-31 00:03 | disposition home or self-care (01) ==
LOC: ERS 18:37
DX: D64.9 Anemia, unspecified (principal); I12.9 Hypertensive chronic kidney disease with stage 1 through stage 4 chronic kidney disease, or unspecified chronic kidney disease; E11.22 Type 2 diabetes mellitus with diabetic chronic kidney disease; N18.9 Chronic kidney disease, unspecified; M10.9 Gout, unspecified; F17.200 Nicotine dependence, unspecified, uncomplicated; Z99.2 Dependence on renal dialysis
CPT/HCPCS: 36430; 71045; 80053; 83735; 85025; 85610; 85730; 86850; 86900; 86901; 86920; 93005; 99284; P9016

== ENCOUNTER 2023-04-07 16:00 | Emergency (ER) | payer MEDICARE ==
[2023-04-07 17:14] LABS: #Eosinphils 0.3 thou/uL (0.0-0.7); #Monocytes 0.4 thou/uL (0.11-0.59); #Neutrophils 3.5 thou/uL (1.40-6.50); %Basophils 0.4 % (0.0-1.0); %Eosinophils 4.8 % (0.0-10.0); %Lymphocytes 22.4 % (21.0-51.0); %Neutrophils 64.7 % (42.0-75.0); Hematocrit 17.6 % (42.0-52.0); Hemoglobin 5.2 g/dL (14.0-18.0); Mean Corpuscular HGB CONC 29.5 g/dL (32.0-36.0); Mean Corpuscular Hemoglobin 30.4 pg (27.0-31.0); Mean Corpuscular Volume 102.9 fl (78.0-98.0); Mean Platelet Volume 10.2 fL (7.4-10.4); Platelet Count 167 10x3/uL (130-400); RBC Distribution Width 17.2 % (11.5-14.5); Red Blood Cell (RBC) Count 1.71 mill/uL (4.70-6.10); White Blood Cell (WBC) Count 5.5 10x3/uL (4.8-10.8)
[2023-04-07 17:45] LABS: ALT (SGPT) 15 U/L (8-55); AST (SGOT) 19 U/L (5-34); Albumin 3.6 g/dL (3.5-5.0); Alkaline Phosphatase 83 U/L (40-110); Anion Gap 13 mmol/L (10-20); BUN (Urea Nitrogen) 23 mg/dL (8.4-25.7); Bilirubin, Total 0.4 mg/dL (0.2-1.2); Calc. Creatinine Clearance 0 mL/min (70-130); Calcium 8.6 mg/dL (7.8-10.44); Carbon Dioxide 26 mmol/L (22-29); Chloride 104 mmol/L (98-107); Estimated GFR 10; Globulin 3.3 g/dL (2.4-3.5); Glucose 109 mg/dL (70-105); Potassium 3.7 mmol/L (3.5-5.1); Protein, Total 6.9 g/dL (6.0-8.3); Sodium 139 mmol/L (136-145)
== END 2023-04-08 03:07 | disposition home or self-care (01) ==
LOC: ERS 16:00
DX: D64.9 Anemia, unspecified (principal); I10 Essential (primary) hypertension; E78.5 Hyperlipidemia, unspecified; E11.9 Type 2 diabetes mellitus without complications; F17.210 Nicotine dependence, cigarettes, uncomplicated
CPT/HCPCS: 36430; 80053; 85025; 86850; 86900; 86901; 86920; 99284; P9016; 36415

== ENCOUNTER 2023-04-12 09:12 | Day surgery (SDC) | payer MEDICARE ==
[2023-04-12] MEDS ORDERED: diphenhydrAMINE 25 MG CAP PO SCH (09:45)
[2023-04-12] MEDS ORDERED: Furosemide 20 MG/2 ML VIAL SLOW IVP SCH (09:45)
[2023-04-12] MEDS ORDERED: Acetaminophen 500 MG TAB PO SCH (09:45)
[2023-04-12] MEDS ORDERED: diphenhydrAMINE 25 MG CAP ONE (10:11)
[2023-04-12] MEDS ORDERED: Acetaminophen 500 MG TAB ONE (10:11)
[2023-04-12] MEDS ORDERED: Furosemide 20 MG/2 ML VIAL ONE (12:42)
[2023-04-12 15:47] VITALS: BP 140/67; TEMP 98.1
== END 2023-04-12 15:54 | disposition home or self-care (01) ==
LOC: ONC/OP 09:12
PROVIDERS: ATTEND Internal Medicine Hematology & Oncology
DX: D64.9 Anemia, unspecified (principal); D50.0 Iron deficiency anemia secondary to blood loss (chronic); N18.4 Chronic kidney disease, stage 4 (severe); D63.1 Anemia in chronic kidney disease
CPT/HCPCS: 36415; 36430; 82728; 83021; 83540; 83550; 85046; 86850; 86900; 86901; 96374; J1940; P9016

== ENCOUNTER 2023-04-13 15:26 | Inpatient (IN) | payer MEDICARE ==
[2023-04-13 15:57] LABS: #Eosinphils 0.2 thou/uL (0.0-0.7); #Monocytes 0.4 thou/uL (0.11-0.59); #Neutrophils 3.5 thou/uL (1.40-6.50); %Basophils 0.2 % (0.0-1.0); %Eosinophils 3.3 % (0.0-10.0); %Lymphocytes 20.1 % (21.0-51.0); %Monocytes 7.7 % (0.0-10.0); %Neutrophils 68.1 % (42.0-75.0); Hematocrit 21.3 % (42.0-52.0); Hemoglobin 7.2 g/dL (14.0-18.0); Mean Corpuscular HGB CONC 33.8 g/dL (32.0-36.0); Mean Corpuscular Hemoglobin 30.6 pg (27.0-31.0); Mean Corpuscular Volume 90.6 fl (78.0-98.0); Mean Platelet Volume 10.1 fL (7.4-10.4); Platelet Count 156 10x3/uL (130-400); RBC Distribution Width 19.2 % (11.5-14.5); Red Blood Cell (RBC) Count 2.35 mill/uL (4.70-6.10); White Blood Cell (WBC) Count 5.2 10x3/uL (4.8-10.8)
[2023-04-13 16:25] LABS: ALT (SGPT) 18 U/L (8-55); AST (SGOT) 28 U/L (5-34); Albumin 3.5 g/dL (3.5-5.0); Alkaline Phosphatase 79 U/L (40-110); Anion Gap 14 mmol/L (10-20); BUN (Urea Nitrogen) 28 mg/dL (8.4-25.7); Bilirubin, Total 0.6 mg/dL (0.2-1.2); Calc. Creatinine Clearance 0 mL/min (70-130); Calcium 8.9 mg/dL (7.8-10.44); Carbon Dioxide 31 mmol/L (22-29); Chloride 99 mmol/L (98-107); Estimated GFR 13; Globulin 3.7 g/dL (2.4-3.5); Glucose 154 mg/dL (70-105); Protein, Total 7.2 g/dL (6.0-8.3); Sodium 140 mmol/L (136-145)
[2023-04-13] MEDS ORDERED: Epoetin (ESRD) 10,000 UNITS/ML VIAL SC SCH (17:30)
[2023-04-13] MEDS ORDERED: Dextrose 5% in Water 1,000 ML IV PRN (19:07)
[2023-04-13] MEDS ORDERED: Dextrose 50% Abboject 50 ML SYRINGE SLOW IVP PRN (19:07)
[2023-04-13] MEDS ORDERED: Glucagon 1 MG/ML KIT IM PRN (19:07)
[2023-04-13] MEDS ORDERED: Acetaminophen 325 MG TAB PO PRN (19:07)
[2023-04-13] MEDS ORDERED: HumaLOG 300 UNITS/3 ML VIAL SC PRN ×2 (19:07)
[2023-04-13] MEDS ORDERED: Lactated Ringer's 1,000 ML IV SCH (19:15)
[2023-04-13 20:01] LABS: Iron 263 ug/dL (65-175); Iron Binding Capacity, Total 333 mcg/dL (261-462)
[2023-04-13 20:05] LABS: Hemoglobin 6.7 g/dL (14.0-18.0)
[2023-04-13 20:20] LABS: Ferritin 265.09 ng/mL (22-322); Thyroid Stimulating Hormone 3.6876 uIU/mL (0.35-4.94)
[2023-04-13 20:21] VITALS: BMI 35.0
[2023-04-13] MEDS: Pantoprazole 40 MG VIAL IVP SCH (20:21)
[2023-04-13 20:54] LABS: Prothrombin Time 13.6 sec (12.0-14.7)
[2023-04-13 20:55] LABS: PTT 31.1 sec (22.9-36.1)
[2023-04-13 21:01] LABS: Hematocrit 18.6 % (42.0-52.0); Hemoglobin 6.2 g/dL (14.0-18.0)
[2023-04-14 05:25] LABS: #Eosinphils 0.3 thou/uL (0.0-0.7); #Monocytes 0.5 thou/uL (0.11-0.59); #Neutrophils 3.9 thou/uL (1.40-6.50); %Basophils 0.5 % (0.0-1.0); %Eosinophils 4.9 % (0.0-10.0); %Lymphocytes 22.6 % (21.0-51.0); %Monocytes 7.7 % (0.0-10.0); %Neutrophils 63.8 % (42.0-75.0); Hematocrit 21.7 % (42.0-52.0); Hemoglobin 7.1 g/dL (14.0-18.0); Mean Corpuscular HGB CONC 32.7 g/dL (32.0-36.0); Mean Corpuscular Volume 91.6 fl (78.0-98.0); Platelet Count 141 10x3/uL (130-400); RBC Distribution Width 17.3 % (11.5-14.5); Red Blood Cell (RBC) Count 2.37 mill/uL (4.70-6.10); White Blood Cell (WBC) Count 6.1 10x3/uL (4.8-10.8)
[2023-04-14 05:41] LABS: AST (SGOT) 22 U/L (5-34); Albumin 3.2 g/dL (3.5-5.0); Alkaline Phosphatase 71 U/L (40-110); Anion Gap 13 mmol/L (10-20); BUN (Urea Nitrogen) 40 mg/dL (8.4-25.7); Bilirubin, Total 0.5 mg/dL (0.2-1.2); Calc. Creatinine Clearance 18 mL/min (70-130); Calcium 8.1 mg/dL (7.8-10.44); Carbon Dioxide 27 mmol/L (22-29); Chloride 102 mmol/L (98-107); Estimated GFR 10; Globulin 2.8 g/dL (2.4-3.5); Glucose 96 mg/dL (70-105); Potassium 3.9 mmol/L (3.5-5.1); Sodium 138 mmol/L (136-145)
[2023-04-14] MEDS: Levothyroxine 150 MCG TAB PO SCH (05:51)
[2023-04-14 05:57] LABS: ALT (SGPT) 16 U/L (8-55)
[2023-04-14] MEDS ORDERED: Ferrous Sulfate 325 MG TAB PO SCH (08:00)
[2023-04-14 08:18] LABS: Magnesium 1.9 mg/dL (1.6-2.6); Phosphorus 3.6 mg/dL (2.3-4.7)
[2023-04-14] MEDS ORDERED: Ergocalciferol 1.25 MG(50,000 UNITS) CAP PO SCH ×2 (09:00)
[2023-04-14] MEDS: Pantoprazole 40 MG VIAL IVP SCH ×2 (09:13→20:21)
[2023-04-14] MEDS: Sevelamer Carbonate 800 MG TAB PO SCH ×3 (09:14→17:42)
[2023-04-14] MEDS: Febuxostat 40 MG TAB PO SCH (09:14)
[2023-04-14] MEDS: Sodium Bicarbonate Tab 325 MG TAB PO SCH (09:14)
[2023-04-14] MEDS: Doxazosin Mesylate 4 MG TAB PO SCH (09:15)
[2023-04-14] MEDS: Amlodipine 10 MG TAB PO SCH (09:15)
[2023-04-14] MEDS: Carvedilol 6.25 MG TAB PO SCH ×2 (09:15→20:21)
[2023-04-14] MEDS: Folic Acid 1 MG TAB PO SCH (09:15)
[2023-04-14] MEDS: Fish Oil 1,000 MG CAP PO SCH (09:15)
[2023-04-14] MEDS: HYDROcodone/Acetaminophen 10/325 mg Tablet PO PRN ×2 (11:48→21:30)
[2023-04-14] MEDS ORDERED: GoLYTELY 4,000 ml Bottle PO SCH (18:00)
[2023-04-14 22:58] LABS: Hemoglobin 7.7 g/dL (14.0-18.0); Platelet Count 164 10x3/uL (130-400)
[2023-04-15 04:54] LABS: #Eosinphils 0.3 thou/uL (0.0-0.7); #Monocytes 0.4 thou/uL (0.11-0.59); %Basophils 0.3 % (0.0-1.0); %Eosinophils 5.4 % (0.0-10.0); %Lymphocytes 21.1 % (21.0-51.0); %Monocytes 6.9 % (0.0-10.0); %Neutrophils 66.1 % (42.0-75.0); Hematocrit 23.1 % (42.0-52.0); Hemoglobin 7.6 g/dL (14.0-18.0); Mean Corpuscular HGB CONC 32.9 g/dL (32.0-36.0); Mean Corpuscular Volume 91.3 fl (78.0-98.0); Mean Platelet Volume 9.7 fL (7.4-10.4); Platelet Count 154 10x3/uL (130-400); RBC Distribution Width 17.2 % (11.5-14.5); Red Blood Cell (RBC) Count 2.53 mill/uL (4.70-6.10)
[2023-04-15 05:17] LABS: ALT (SGPT) 17 U/L (8-55); AST (SGOT) 24 U/L (5-34); Albumin 3.2 g/dL (3.5-5.0); Alkaline Phosphatase 77 U/L (40-110); Anion Gap 15 mmol/L (10-20); BUN (Urea Nitrogen) 42 mg/dL (8.4-25.7); Bilirubin, Total 0.6 mg/dL (0.2-1.2); Calc. Creatinine Clearance 15 mL/min (70-130); Carbon Dioxide 26 mmol/L (22-29); Chloride 102 mmol/L (98-107); Estimated GFR 8; Globulin 2.9 g/dL (2.4-3.5); Glucose 100 mg/dL (70-105); Potassium 4.5 mmol/L (3.5-5.1); Protein, Total 6.1 g/dL (6.0-8.3); Sodium 138 mmol/L (136-145)
[2023-04-15] MEDS: Levothyroxine 150 MCG TAB PO SCH (05:41)
[2023-04-15] MEDS ORDERED: Heparin 10,000 UNITS/ 10 ML VIAL ONE (08:33)
[2023-04-15] MEDS ORDERED: fentaNYL 50 mcg/mL 1 mL Vial ONE (08:44)
[2023-04-15] MEDS ORDERED: Ondansetron HCl/PF 4 MG/2 ML Vial IVP PRN (08:54)
[2023-04-15] MEDS ORDERED: Promethazine HCl 25 MG/ML VIAL IM PRN (08:54)
[2023-04-15] MEDS ORDERED: Epoetin (ESRD) 10,000 UNITS/ML VIAL IVP SCH (09:00)
[2023-04-15] MEDS ORDERED: PROPOFOL 200 MG/20 ML VIAL ONE (09:18)
[2023-04-15] MEDS ORDERED: PHENYLEPHRINE-NS 100 MCG/ML 10 ML SYRINGE ONE (09:18)
[2023-04-15 12:13] VITALS: BP 143/74; TEMP 98.2
[2023-04-15] MEDS: Sevelamer Carbonate 800 MG TAB PO SCH ×2 (17:47→17:48)
[2023-04-15] MEDS: Febuxostat 40 MG TAB PO SCH (17:48)
[2023-04-15] MEDS: Amlodipine 10 MG TAB PO SCH (17:48)
[2023-04-15] MEDS: Doxazosin Mesylate 4 MG TAB PO SCH (17:48)
[2023-04-15] MEDS: Fish Oil 1,000 MG CAP PO SCH (17:48)
[2023-04-15] MEDS: Folic Acid 1 MG TAB PO SCH (17:48)
[2023-04-15] MEDS: Carvedilol 6.25 MG TAB PO SCH (17:48)
[2023-04-15] MEDS: Pantoprazole 40 MG VIAL IVP SCH (17:48)
[2023-04-15] MEDS: Sodium Bicarbonate Tab 325 MG TAB PO SCH (17:49)
[2023-04-18 15:13] LABS: Hemoglobin A2 2.5 % (1.8-3.2); Hemoglobin F 0 % (0.0-2.0)
== END 2023-04-15 18:20 | disposition home or self-care (01) | DRG 377 ==
LOC: ERS 15:26 → T4-A 18:38 → 2SW 21:21 → OBSVTOIN 04-14 14:31
PROVIDERS: ADMIT Family Medicine; ATTEND Family Medicine
PROC: 30233N1 Transfusion of Nonautologous Red Blood Cells into Peripheral Vein, Percutaneous Approach (ICD-10-PCS; 2023-04-14)
PROC: 0W3P8ZZ Control Bleeding in Gastrointestinal Tract, Via Natural or Artificial Opening Endoscopic (ICD-10-PCS; principal; 2023-04-15)
PROC: 0DBL8ZZ Excision of Transverse Colon, Via Natural or Artificial Opening Endoscopic (ICD-10-PCS; 2023-04-15)
DX: K31.811 Angiodysplasia of stomach and duodenum with bleeding (principal); N18.6 End stage renal disease; D62 Acute posthemorrhagic anemia; I12.0 Hypertensive chronic kidney disease with stage 5 chronic kidney disease or end stage renal disease; E03.9 Hypothyroidism, unspecified; M10.9 Gout, unspecified; Z79.899 Other long term (current) drug therapy; E11.22 Type 2 diabetes mellitus with diabetic chronic kidney disease; D12.3 Benign neoplasm of transverse colon; Z98.890 Other specified postprocedural states; E83.81 Hungry bone syndrome; D63.1 Anemia in chronic kidney disease; Z99.2 Dependence on renal dialysis; F17.220 Nicotine dependence, chewing tobacco, uncomplicated
CPT/HCPCS: 36415; 36416; 36430; 71045; 80053; 82274; 82607; 82728; 83010; 83021; 83540; 83550; 83615; 83735; 84100; 84443; 85025; 85046; 85610; 85730; 86850; 86900; 86901; 88305; 90935; 93005; 96372; 96374; 96376; C9113; G0257; G0378; J1644; J1940; J2704; J3010; J7120; P9016; Q4081